=== PATIENT | male | born 1985 | race Caucasian/White ===

== ENCOUNTER 2016-11-16 22:20 | Emergency (ER) | payer SELFPAY ==
[2016-11-16 22:21] VITALS: BMI 24.4
--- NOTE | 2016-11-16 22:29 | EDPRACDOC ---
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 LASTED 1 MINUTE. TONIC CLONIC. WITNESSED BY FAMILY. NO TONGUE TRAUMA. NO LOSS OF BLADDER CONTROL. NO MEDS FOR SEIZURES CURRENTLY. LAST SEIZURE 5 YEARS AGO. MUCH MORE PROMINENT DURING ADOLESCENT YEARS. Seizure Duration: 1 MINUTE Witnessed: YES Postictal: Yes Episodes: Reports: single episode today, remote history Seizure Type: Reports: [place] Seizure Trigger: Reports: Unknown Prior to Seizure: Reports: Lethargic, Aura During Seizure: Reports: Teeth Clenched, Loss of Consciousness Arousable To: Reports: Touch Immediately After Seizure: Reports: Confusion Associated Signs & Symptoms: Reports: Confusion, Aura - [place]gow Coma scale Coma Scale Eye Opening: Spontaneous Coma Scale Motor: Obeys Commands Coma Scale Verbal: Oriented Coma Scale Total: 15 <Chino Lazo - Last Filed: 11/17/16 00:50> - General Information Chief Complaint: Seizure Stated Complaint: SEIZURE Time Seen by Provider: 11/16/16 22:25 Home Medications: Home Medications Oxycodone HCl [Roxicodone] 5 mg PO Q4 PRN #10 tablet 07/01/16 Penicillin V Potassium 500 mg PO TID #30 tablet 07/01/16 Levetiracetam [Keppra] 500 mg PO BID #180 tab 11/17/16 Oxycodone HCl/Acetaminophen [Percocet 5-325 mg Tablet] 1 each PO Q4 #20 tablet 11/17/16 Allergies/Adverse Reactions: Allergies Allergy/AdvReac Type Severity Reaction Status Date / Time No Known Allergies Allergy Verified 07/01/16 04:58 - Treatment Prior to ED Arrival Reported Medications/Treatment 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 Treatment BLS IV Yes <Maykel Mcbride - Last Filed: 11/16/16 22:33> ED Past Medical History - History Reviewed Yes Nurses notes reviewed and agree except as marked Travel Outside of [place] in the Last 3 Months?: No - Patient Medical History Neurological History: Reports: Seizures Psychological History: Denies: Depression - Social Medical History Smoking Status: Heavy tobacco smoker (5 or more cigarettes/day or daily pipe/ cigar) <Chino Lazo - Last Filed: 11/17/16 00:50> EDM Review of Systems - Review of Systems ROS Negative Except as Marked: Yes All systems reviewed and were negative except as marked Constitutional: No Symptoms Reported. negative: Fever, Chills, Weakness, Fatigue, Loss of Appetite Eyes: No Symptoms Reported. negative: Redness, Blurred Vision, Double Vision, Discharge, Pain, Light Sensitive, Photophobia Ears: No Symptoms Reported. negative: Pain, Hearing Loss, Drainage, Ear Pulling Throat: No Symptoms Reported. negative: Pain, Swelling Nose: No Symptoms Reported. negative: Congestion, Bleeding, Discharge, Injection, Swelling, Deformity, Ecchymosis, Tender, Abrasion, Laceration Mouth: No Symptoms Reported. negative: Pain, Drooling Respiratory: No Symptoms Reported. negative: Cough, Brassy Cough, Barky Cough, Shortness of Breath, Wheezing, Hemoptysis Cardiovascular: No Symptoms Reported. negative: Chest Pain, Palpitations, Syncope, Edema, Orthopnea, PND, Skin Mottling, Cyanosis Gastrointestinal: No Symptoms Reported. negative: Pain, Constipation, Nausea, Vomiting, Diarrhea, Melena, Formula Intolerance Genitourinary: No Symptoms Reported. negative: Dysuria, Hematuria, Frequency, Discharge, Bleeding, Testicular Pain, Neurological: Seizure. negative: Dizziness, Gait Difficulty, Headache, Numbness , Speech Difficulty, Weakness Musculoskeletal: No Symptoms Reported. negative: Neck, Chestwall, Ribs, Back, Shoulder, Arm, Elbow, Forearm, Wrist, Hand, Pelvis, Hip, Femur, Knee, Leg, Ankle , Foot Integumentary: No Symptoms Reported. negative: Itching, Rash, Bruising, Wound Allergic/Immunologic: No Symptoms Reported. negative: Hives, Itching Hematologic: No Symptoms Reported. negative: Lymphadenopathy, Easy Bruising, Easy Bleeding Endocrine: No Symptoms Reported. negative: Weight Gain, Weight Loss Psychiatric: No Symptoms Reported. negative: Anxiety, Depression, Hallucinations, Insomnia, Suicidal <Chino Lazo - Last Filed: 11/17/16 00:50> - Physical Exam Last recorded Vital Signs: Last Vital Signs Temp 97.8 F 11/16/16 22:25 Pulse 98 11/16/16 22:25 Resp 18 11/16/16 22:25 BP 145/74 11/16/16 22:25 Pulse Ox 100 11/16/16 22:25 Oxygen Pulse Oxygen Saturation 100 O2 Device Oxygen Flow Rate Fraction of Inspired Oxygen ( FIO2) <Maykel Mcbride - Last Filed: 11/16/16 22:33> - Physical Exam Constitutional: Alert (Awake), No apparent distress Oriented to: Time, Person, Place Last recorded Vital Signs: Oxygen Pulse Oxygen Saturation O2 Device Oxygen Flow Rate Fraction of Inspired Oxygen ( FIO2) - HEENT Head: Normal ( normocephalic) Eye Exam: Normal (PERRL, EOMI, Sclera white) Oropharynx: Normal (Pharynx:Moist without exudate,Gums-no swelling) Tympanic Membrane: Normal ENT EAC: Normal TMJ: Normal Nose: No Symptoms Reported (septum midline) Neck: Normal (FROM, trachea at midline) - Respiratory/Cardiovascular Respiratory: Normal - CTA (BBS clear to auscultation without adventitious sounds ) Cardiovascular: Normal (RRR without murmur, gallop or rub) - GI Auscultation: Normal (NABS) Palpation: Normal (Soft,No rebound or guarding, non distended) Tenderness: Non tender Polanco's Sign: Negative - Musculoskeletal Back: Normal (Non-Tender) Extremities: Normal (Normal tone, Pulses 2+ No cyanosis or edema, FROM) - Integumentary Skin: Normal, Warm, Dry Lymphatics: Normal (no adenopathy) - Neurologic Memory Impaired: Normal Motor Function: Normal (Normal tone, Pulses 2+ No cyanosis or edema, FROM) Cranial Nerve: Normal (CN II-X11 intact sensation, strength 5/5) Cerebellar: Normal Mood Description: Normal Perception: Normal <Chino Lazo - Last Filed: 11/17/16 00:50> - Results 11/16/16 22:43 11/16/16 22:43 <Chino Lazo - Last Filed: 11/17/16 00:50> <Maykel Mcbride - Last Filed: 11/16/16 22:33> Decision Time to Discharge: 00:48 - Departure Yes I personally saw and evaluated the patient. Disposition: Home Education/Counseling Given To: Patient Education/Counseling Given Regarding: Diagnosis, Treatment, Prognosis, Follow Up <Chino Lazo - Last Filed: 11/17/16 00:50> - Departure Condition: Good Final Diagnosis: Seizure Rib contusion Qualifiers: Encounter type: initial encounter Laterality: unspecified laterality Qualified Code(s): S20.219A - Contusion of unspecified front wall of thorax, initial encounter Instructions: Seizures Referrals: None,No Provider [Primary Care Provider] - One Week Ari Baron MD [Staff Physician] - One Week Prescriptions: Levetiracetam [Keppra] 500 mg PO BID #180 tab Oxycodone HCl/Acetaminophen [Percocet 5-325 mg Tablet] 1 each PO Q4 #20 tablet
[2016-11-16 22:33] VITALS: TEMP 97.8
[2016-11-16 22:49] LABS: ALL NEG? NO
[2016-11-16 22:50] LABS: AUTOMATED BASOPHIL 0.7 % (0-2); AUTOMATED EOSINOPHIL 2.4 % (0-5); AUTOMATED LYMPH 33.6 % (17-44); AUTOMATED NEUTROPHIL 58.3 % (45-76); MPV 9.4 fL (7.4-10.4)
[2016-11-16 22:56] LABS: MDMA* NEG (NEGATIVE); METHAMPHETAMINES NEG (NEGATIVE); OXYCODONE *POSITIVE* (NEGATIVE)
[2016-11-16 22:58] LABS: BLOOD UREA NITROGEN 13 MG/DL (9-20); CALCULATED OSMOLALITY 269 MOs/Kg (270-290); CHLORIDE 106 mEq/L (98-107); GLUCOSE 100 MG/DL (70-99); SODIUM LEVEL 140 mEq/L (137-146); TOTAL PROTEIN 7.1 G/DL (6.3-8.2)
[2016-11-16] MEDS ORDERED: OXYCODONE HCL 5 MG TABLET PO ONE (23:25)
--- NOTE | 2016-11-16 23:38 | DIRPT ---
CLINICAL DATA: 31-year-old male with left rib pain. EXAM: CHEST 2 VIEW COMPARISON: None. FINDINGS: The heart size and mediastinal contours are within normal limits. Both lungs are clear. The visualized skeletal structures are unremarkable. IMPRESSION: No active cardiopulmonary disease. Electronically Signed By: Dev Carlton M.D. On: 11/16/2016 23:35
--- NOTE | 2016-11-17 00:40 | DIRPT ---
CLINICAL DATA: 31-year-old male with seizure and injury. EXAM: CT HEAD WITHOUT CONTRAST CT CERVICAL SPINE WITHOUT CONTRAST TECHNIQUE: Multidetector CT imaging of the head and cervical spine was performed following the standard protocol without intravenous contrast. Multiplanar CT image reconstructions of the cervical spine were also generated. COMPARISON: CT dated 04/22/2015 FINDINGS: CT HEAD FINDINGS The ventricles and the sulci are appropriate in size for the patient's age. There is no intracranial hemorrhage. No midline shift or mass effect identified. The herrera-white matter differentiation is preserved. The visualized paranasal sinuses and mastoid air cells are well aerated. The calvarium is intact. CT CERVICAL SPINE FINDINGS There is no acute fracture or subluxation of the cervical spine.The intervertebral disc spaces are preserved.The odontoid and spinous processes are intact.There is normal anatomic alignment of the C1-C2 lateral masses. The visualized soft tissues appear unremarkable. IMPRESSION: No acute intracranial pathology. No acute/ traumatic cervical spine pathology. Electronically Signed By: Dev Carlton M.D. On: 11/17/2016 00:37
[2016-11-17 01:12] VITALS: BP 133/74; PULSE 81
== END 2016-11-17 01:11 | disposition home or self-care (01) ==
LOC: ED 22:20
DX: R56.9 Unspecified convulsions (principal); F17.200 Nicotine dependence, unspecified, uncomplicated; R41.0 Disorientation, unspecified
CPT/HCPCS: 36415; 70450; 71020; 72125; 80053; 80307; 85025; 99283; J3490